=== PATIENT | male | born 1980 | race Caucasian/White ===

== ENCOUNTER → 2021-03-10 | Outpatient (CLI) | payer OTHER ==
--- NOTE | 2021-03-10 09:17 | KCIC ---
EXAM: Cervical spine, 5 views. HISTORY: Pain. COMPARISON: None. FINDINGS: 5 views of the cervical spine are obtained. There is mild reversal of cervical lordosis. Th ere is no listhesis. There is mild multilevel endplate remodeling. IMPRESSION: 1. Mild reversal cervical lordosis and mild multilevel endplate remodeling. 2. No acute osseous finding. Electronically signed by: Tiki Azevedo MD (03/10/2021 9:15 AM) [id number]
== END ==
LOC: KCIC 08:29
PROVIDERS: ATTEND Nurse Practitioner Gerontology
DX: M40.40 Postural lordosis, site unspecified (principal); M54.2 Cervicalgia
CPT/HCPCS: 72040

== ENCOUNTER → 2021-04-14 | Outpatient (CLI) | payer OTHER ==
--- NOTE | 2021-04-14 16:43 | RAD ---
EXAM: ULTRASOUND SOFT TISSUE NECK CLINICAL HISTORY: Lump in back of lower neck, red and swollen, 2 weeks ago. COMPARISON: None available. TECHNIQUE: Ultrasound examination of the lower posterior neck was performed FINDINGS: There is mild skin thickening in the posterior neck in the area of concern. No mass or fluid collecti on. IMPRESSION: Mild skin thickening. No mass or fluid collection in the area of concern in the posterior neck. Electronically signed by: Jeri Pillai MD (04/14/2021 4:41 PM) [id number]
== END ==
LOC: US 14:33
PROVIDERS: ATTEND Nurse Practitioner Gerontology
DX: R23.4 Changes in skin texture (principal); M79.89 Other specified soft tissue disorders
CPT/HCPCS: 76536